=== PATIENT | female | born 1945 | race Caucasian/White ===

== ENCOUNTER 2020-07-03 17:59 | Inpatient (IN) | payer MEDICARE ==
[~2020-07-03] VITALS: Ht 157.5 cm; Wt 136.1 kg
[2020-07-03 18:00] VITALS: BP 142/61
[2020-07-03 18:30] LABS: HEMATOCRIT 37.3 % (37.0-47.0); HEMOGLOBIN 12.4 gm/dL (12.0-15.0); MCH 29.2 pg (26.0-34.0); MCHC 33.3 g/dL (28.0-37.0); MCV 87.6 fL (80.0-100.0); MPV 7.4 fl. (7.2-11.1); NUCLEATED RBCS 0 /100WBC; PLATELET COUNT* 221 thou/uL (150-400); RBC 4.26 mil/uL (4.20-5.00); RDW-CV 15.7 % (10.5-14.5)
[2020-07-03 18:40] LABS: CREATININE 1.2 mg/dL (0.6-1.3); POTASSIUM 3.9 mmol/L (3.5-5.1)
[2020-07-03 18:45] LABS: APTT 29.5 Seconds (25.0-31.3); INR 1.1; PROTIME 11.8 Seconds (9.20-11.50)
[2020-07-03 18:51] LABS: ALBUMIN 3.1 g/dL (3.4-5.0); TOTAL BILIRUBIN 1.3 mg/dL (<0.1-1.0); TOTAL PROTEIN 7.4 g/dL (6.4-8.2)
[2020-07-03 18:57] LABS: ABSOLUTE LYMPHOCYTES 0.5 thou/uL (0.8-5.3); ABSOLUTE MONOCYTES 0.8 thou/uL (0.0-1.2); ABSOLUTE NEUTROPHILS 11.7 thou/uL (1.6-8.1); PLATELET ESTIMATE ADEQUATE
[2020-07-03 18:58] LABS: ANISOCYTOSIS Occasional
[2020-07-03 19:23] LABS: URINE BILIRUBIN NEGATIVE (Negative); URINE BLOOD 2+ (Negative); URINE CLARITY CLOUDY; URINE COLOR YELLOW; URINE GLUCOSE-RANDOM NEGATIVE (Negative); URINE NITRITE-REFLEX NEGATIVE (Negative); URINE PROTEIN 1+ (Negative)
[2020-07-03 19:24] LABS: URINE KETONES 3+ (Negative); URINE LEUKOCYTES-REFLEX 3+ (Negative)
[2020-07-03 19:29] LABS: SQUAMOUS 4-10 Moderate /LPF (0-3)
[2020-07-03 19:30] LABS: MUCUS None Seen strn/LPF (None Seen); WBC CLUMPS Few (None Seen)
[2020-07-03 19:31] LABS: CRYSTALS None Seen /LPF (None Seen); URINE RBC 3-10 Few /HPF (0-2); URINE WBC-REFLEX >25 Many /HPF (0-5)
[2020-07-03 19:32] LABS: HYALINE CASTS 0-3 Few /LPF (None Seen)
[2020-07-03] MEDS ORDERED: MELOXICAM15 MG PO (20:22)
[2020-07-03] MEDS ORDERED: CELEXA 20 MG TA20 MG PO (20:23)
[2020-07-03] MEDS ORDERED: QUINAPRIL 20 MG20 MG PO (20:23)
[2020-07-03] MEDS ORDERED: OXYBUTYNIN 5 MG5 M2 PO (20:23)
[2020-07-03] MEDS ORDERED: NEURONTIN300 MG PO (20:23)
[2020-07-03] MEDS ORDERED: LORCET 5-325 M1 EACH PO (20:24)
[2020-07-03 22:45] VITALS: BP 174/64
[2020-07-04 08:20] VITALS: BP 125/71
[2020-07-04 10:09] LABS: ABSOLUTE EOSINOPHILS 0.1 thou/uL (0.0-0.7); ABSOLUTE LYMPHOCYTES 0.4 thou/uL (0.8-5.3); ABSOLUTE MONOCYTES 0.8 thou/uL (0.0-1.2); ABSOLUTE NEUTROPHILS 12.4 thou/uL (1.6-8.1); BASOPHILS 0.4 %; EOSINOPHILS 0.5 %; HEMATOCRIT 35.1 % (37.0-47.0); HEMOGLOBIN 11.5 gm/dL (12.0-15.0); LYMPHOCYTES 3.2 %; MCHC 32.8 g/dL (28.0-37.0); MCV 88.2 fL (80.0-100.0); MONOCYTES 5.7 %; MPV 7.6 fl. (7.2-11.1); NUCLEATED RBCS 0 /100WBC; PLATELET COUNT* 214 thou/uL (150-400); POLYS 90.2 %; RBC 3.98 mil/uL (4.20-5.00); RDW-CV 16.1 % (10.5-14.5); WBC 13.8 thou/uL (4.0-11.0)
[2020-07-04 10:23] LABS: ALBUMIN 2.5 g/dL (3.4-5.0); CALCIUM 8.1 mg/dL (8.5-10.1); POTASSIUM 3.8 mmol/L (3.5-5.1); TOTAL BILIRUBIN 0.7 mg/dL (<0.1-1.0); TOTAL PROTEIN 6.4 g/dL (6.4-8.2)
--- NOTE | 2020-07-04 13:16 | EKG ---
[place] [address] ELECTROCARDIOGRAM REPORT Name: MILE ROSALES Room: [address] IN .R.#: [id number] Admission: 07/03/20 Attend Phys: Eliza Panchal, Discharge: Date of : 49 Date of Service: 07/03/20 181 Report #: [id number] THIS REPORT FOR: //name// [facility] ED Test Date: 2020-07-03 Test Time: 18:13:21 Pat Name: MILE ROSALES Department: Room: [facility] Gender: F Dairy Clerk: BRANDO : 1945 Requested By: Tyrone Hoskins Order Number: [id number] MD: Alberto Maravilla Measurements Intervals [place] Rate: 95 P: 50 NC: 171 QRS: -51 QRSD: 96 T: 73 QT: 400 QTc: 503 Interpretive Statements Sinus rhythm Probable left atrial enlargement Left anterior fascicular block Possible lateral infarct, old Prolonged QT interval No previous ECG available for comparison Electronically Signed On 07-04-2020 13:16:25 CDT by Alberto Maravilla [email or web address] <ELECTRONICALLY SIGNED> By: Alberto Maravilla MD, [facility] 07/04/20 1316 1813 1813 Alberto Maravilla MD, [facility] /EPI
[2020-07-04 16:50] VITALS: BP 119/56
[2020-07-04 20:00] VITALS: BP 119/69
[2020-07-04] MEDS ORDERED: BENADRYL25 MG PO (20:50)
[2020-07-04] MEDS ORDERED: LEVOXYL25 MCG PO (20:51)
[2020-07-04] MEDS ORDERED: XANAX 0.5 MG0.5 MG PO (21:43)
[2020-07-05 01:30] VITALS: BP 121/67
[2020-07-05 04:14] LABS: ABSOLUTE BASOPHILS 0.1 thou/uL (0.0-0.2); ABSOLUTE EOSINOPHILS 0.1 thou/uL (0.0-0.7); ABSOLUTE LYMPHOCYTES 0.4 thou/uL (0.8-5.3); ABSOLUTE MONOCYTES 0.8 thou/uL (0.0-1.2); ABSOLUTE NEUTROPHILS 9.4 thou/uL (1.6-8.1); BASOPHILS 0.5 %; EOSINOPHILS 0.8 %; HEMATOCRIT 32.2 % (37.0-47.0); HEMOGLOBIN 10.8 gm/dL (12.0-15.0); LYMPHOCYTES 3.5 %; MCH 29.4 pg (26.0-34.0); MCHC 33.4 g/dL (28.0-37.0); MCV 88.1 fL (80.0-100.0); MONOCYTES 7.6 %; NUCLEATED RBCS 0 /100WBC; PLATELET COUNT* 188 thou/uL (150-400); POLYS 87.6 %; RBC 3.66 mil/uL (4.20-5.00); RDW-CV 15.8 % (10.5-14.5); WBC 10.8 thou/uL (4.0-11.0)
[2020-07-05 07:50] VITALS: BP 114/71
[2020-07-05 20:26] VITALS: BP 108/52
[2020-07-06 04:16] LABS: ABSOLUTE LYMPHOCYTES 0.6 thou/uL (0.8-5.3); ABSOLUTE NEUTROPHILS 6.4 thou/uL (1.6-8.1); HEMATOCRIT 33.1 % (37.0-47.0); MCV 87.8 fL (80.0-100.0); RBC 3.77 mil/uL (4.20-5.00)
[2020-07-06 04:18] LABS: ABSOLUTE EOSINOPHILS 0.4 thou/uL (0.0-0.7); BASOPHILS 0.5 %; EOSINOPHILS 4.4 %; LYMPHOCYTES 7.2 %; MCH 29.2 pg (26.0-34.0); MCHC 33.2 g/dL (28.0-37.0); MONOCYTES 12.3 %; MPV 7.6 fl. (7.2-11.1); NUCLEATED RBCS 0 /100WBC; PLATELET COUNT* 194 thou/uL (150-400); POLYS 75.6 %; RDW-CV 15.6 % (10.5-14.5); WBC 8.5 thou/uL (4.0-11.0)
[2020-07-06 04:28] LABS: CALCIUM 8.4 mg/dL (8.5-10.1); POTASSIUM 3.9 mmol/L (3.5-5.1)
[2020-07-06 07:55] VITALS: BP 140/72
[2020-07-06 15:00] VITALS: BP 111/67
[2020-07-06 20:00] VITALS: BP 118/66
[2020-07-07 04:53] LABS: ABSOLUTE EOSINOPHILS 0.4 thou/uL (0.0-0.7); ABSOLUTE LYMPHOCYTES 0.8 thou/uL (0.8-5.3); ABSOLUTE NEUTROPHILS 4.4 thou/uL (1.6-8.1); BASOPHILS 0.5 %; EOSINOPHILS 5.4 %; HEMATOCRIT 32.5 % (37.0-47.0); LYMPHOCYTES 12.5 %; MCH 29.3 pg (26.0-34.0); MCHC 33.7 g/dL (28.0-37.0); MCV 86.9 fL (80.0-100.0); MONOCYTES 15.5 %; MPV 7.6 fl. (7.2-11.1); NUCLEATED RBCS 0 /100WBC; PLATELET COUNT* 202 thou/uL (150-400); POLYS 66.1 %; RBC 3.74 mil/uL (4.20-5.00); RDW-CV 15.6 % (10.5-14.5); WBC 6.6 thou/uL (4.0-11.0)
[2020-07-07 05:21] LABS: ALBUMIN 2.1 g/dL (3.4-5.0); CREATININE 0.8 mg/dL (0.6-1.3); POTASSIUM 3.7 mmol/L (3.5-5.1); TOTAL BILIRUBIN 0.3 mg/dL (<0.1-1.0); TOTAL PROTEIN 6.1 g/dL (6.4-8.2)
[2020-07-07 07:45] VITALS: BP 144/77
[2020-07-07 21:00] VITALS: BP 155/95
[2020-07-08 04:00] VITALS: BP 155/95
[2020-07-08 07:50] VITALS: BP 144/76
[2020-07-08 20:30] VITALS: BP 154/83
[2020-07-09 04:38] LABS: HEMOGLOBIN 11.3 gm/dL (12.0-15.0); MCH 29.6 pg (26.0-34.0); MCHC 34.2 g/dL (28.0-37.0); MCV 86.8 fL (80.0-100.0); MPV 7.3 fl. (7.2-11.1); NUCLEATED RBCS 0 /100WBC; PLATELET COUNT* 254 thou/uL (150-400); RBC 3.81 mil/uL (4.20-5.00); RDW-CV 15.5 % (10.5-14.5); WBC 6.6 thou/uL (4.0-11.0)
[2020-07-09 04:59] LABS: CALCIUM 8.3 mg/dL (8.5-10.1); CREATININE 0.6 mg/dL (0.6-1.3); POTASSIUM 3.7 mmol/L (3.5-5.1)
[2020-07-09 06:05] LABS: ABSOLUTE EOSINOPHILS 0.2 thou/uL (0.0-0.7); ABSOLUTE LYMPHOCYTES 1.3 thou/uL (0.8-5.3); ABSOLUTE MONOCYTES 0.7 thou/uL (0.0-1.2); ABSOLUTE NEUTROPHILS 4.4 thou/uL (1.6-8.1); ANISOCYTOSIS 1+; PLATELET ESTIMATE ADEQUATE; POIKILOCYTOSIS 1+
[2020-07-09 08:00] VITALS: BP 161/84
[2020-07-09] MEDS ORDERED: PREDNISONE 10 M10 MG PO (11:16)
[2020-07-09] MEDS ORDERED: CEFUROXIME500 MG PO (11:16)
[2020-07-09 20:30] VITALS: BP 144/86
[2020-07-10 08:10] VITALS: BP 149/82
[2020-07-10 20:00] VITALS: BP 152/88
[2020-07-11 07:50] VITALS: BP 150/76
[2020-07-11 13:41] VITALS: BP 150/76
== END 2020-07-11 15:17 | DRG 871 ==
LOC: M.ERS 17:59 → M.3W 20:31 → M.TBA-ER 20:31 → M.3W 22:20
PROVIDERS: Family Medicine; Internal Medicine; ADMIT Internal Medicine; ATTEND Internal Medicine
DX: A41.51 Sepsis due to Escherichia coli [E. coli] (principal); G93.41 Metabolic encephalopathy; Z68.43 Body mass index [BMI] 50.0-59.9, adult; E66.2 Morbid (severe) obesity with alveolar hypoventilation; N30.01 Acute cystitis with hematuria; B96.20 Unspecified Escherichia coli [E. coli] as the cause of diseases classified elsewhere; M06.9 Rheumatoid arthritis, unspecified; M17.0 Bilateral primary osteoarthritis of knee; K59.00 Constipation, unspecified; E11.9 Type 2 diabetes mellitus without complications; Z20.828 Contact with and (suspected) exposure to other viral communicable diseases; Z79.899 Other long term (current) drug therapy; Z88.8 Allergy status to other drugs, medicaments and biological substances; Z87.891 Personal history of nicotine dependence

== ENCOUNTER 2020-09-28 16:57 | Inpatient (IN) | payer MEDICARE ==
[~2020-09-28] VITALS: Ht 157.5 cm; Wt 139.3 kg
[~2020-09-28 16:57] MED LIST: BENADRYL25 MG PO; CEFUROXIME500 MG PO; CELEXA 20 MG TA20 MG PO; LEVOXYL25 MCG PO; LORCET 5-325 M1 EACH PO; MELOXICAM15 MG PO; NEURONTIN300 MG PO; OXYBUTYNIN 5 MG5 M2 PO; PREDNISONE 10 M10 MG PO; QUINAPRIL 20 MG20 MG PO; XANAX 0.5 MG0.5 MG PO
[2020-09-28 17:02] VITALS: BP 119/84
[2020-09-28 17:59] LABS: HEMATOCRIT 36.8 % (37.0-47.0); MCH 29.6 pg (26.0-34.0); MCHC 32.6 g/dL (28.0-37.0); MCV 90.8 fL (80.0-100.0); MPV 7.3 fl. (7.2-11.1); NUCLEATED RBCS 0 /100WBC; PLATELET COUNT* 242 thou/uL (150-400); RBC 4.05 mil/uL (4.20-5.00); RDW-CV 15.4 % (10.5-14.5); WBC 11.8 thou/uL (4.0-11.0)
[2020-09-28 18:00] LABS: URINE BILIRUBIN NEGATIVE (Negative); URINE BLOOD NEGATIVE (Negative); URINE CLARITY CLEAR; URINE COLOR YELLOW; URINE GLUCOSE-RANDOM NEGATIVE (Negative); URINE KETONES NEGATIVE (Negative); URINE LEUKOCYTES-REFLEX TRACE (Negative); URINE NITRITE-REFLEX NEGATIVE (Negative); URINE PROTEIN NEGATIVE (Negative); URINE SPECIFIC GRAVITY 1.025 (1.005-1.030); URINE UROBILINOGEN 0.2 E.U./dl (0.2-1.0)
[2020-09-28 18:18] LABS: CREATININE 0.9 mg/dL (0.6-1.3); POTASSIUM 4.4 mmol/L (3.5-5.1); SQUAMOUS 0-3 Few /LPF (0-3); URINE WBC-REFLEX 6-15 Few /HPF (0-5); WBC CLUMPS Few (None Seen)
[2020-09-28 18:19] LABS: CRYSTALS None Seen /LPF (None Seen); HYALINE CASTS 4-10 Moderate /LPF (None Seen); MUCUS >6 Heavy strn/LPF (None Seen); URINE RBC 0-2 Rare /HPF (0-2)
[2020-09-28 18:29] LABS: ALBUMIN 2.9 g/dL (3.4-5.0); TOTAL BILIRUBIN 0.4 mg/dL (<0.1-1.0); TOTAL PROTEIN 7.1 g/dL (6.4-8.2)
[2020-09-28 19:13] LABS: ABSOLUTE EOSINOPHILS 0.1 thou/uL (0.0-0.7); ABSOLUTE LYMPHOCYTES 1.3 thou/uL (0.8-5.3); ABSOLUTE MONOCYTES 0.5 thou/uL (0.0-1.2); ABSOLUTE NEUTROPHILS 9.9 thou/uL (1.6-8.1); ATYPICAL LYMPHS 3 %; PLATELET ESTIMATE ADEQUATE
[2020-09-28 21:56] VITALS: BP 124/94
[2020-09-29] VITALS: BP 130/69; BP 88/49
[2020-09-29 04:00] VITALS: BP 113/52
[2020-09-29 08:00] VITALS: BP 108/54
[2020-09-29 16:00] VITALS: BP 120/62
[2020-09-29 20:00] VITALS: BP 118/51
[2020-09-30] VITALS: BP 126/69
[2020-09-30 04:00] VITALS: BP 135/62
[2020-09-30 08:00] VITALS: BP 141/77
[2020-09-30 12:00] VITALS: BP 130/61
[2020-09-30 16:17] VITALS: BP 157/92
[2020-09-30 20:00] VITALS: BP 154/92
[2020-10-01] VITALS: BP 141/81
[2020-10-01 04:00] VITALS: BP 147/77
[2020-10-01 08:00] VITALS: BP 146/62
--- NOTE | 2020-10-01 12:14 | EKG ---
[place] [address] ELECTROCARDIOGRAM REPORT Name: MILE ROSALES Room: [address] ADM IN M.R.#: [id number] Admission: 09/28/20 Attend Phys: Eliza Panhcal, Discharge: Date of : 49 Date of Service: 09/28/20 1840 Report #: [id number] THIS REPORT FOR: //name// [facility] ED Test Date: 2020-09-28 Test Time: 18:40:44 Pat Name: MILE ROSALES Department: Room: [facility] Gender: F Hog Killer: ALFONZO : 1945 Requested By: Isidro David Order Number: [id number] MD: Axel Vargas Measurements Intervals [place] Rate: 67 P: 32 ID: [id number] QRS: -39 QRSD: 101 T: 63 QT: 441 QTc: 466 Interpretive Statements Sinus rhythm Borderline prolonged ID interval Left axis deviation Low voltage, precordial leads Compared to ECG 07/03/2020 18:13:21 Prolonged QT interval no longer present Electronically Signed On 10-01-2020 12:14:04 PUBLIC ADDRESS SYSTEM MECHANIC by Axel Vargas [email or web address] <ELECTRONICALLY SIGNED> By: Axel Vargas MD, FACC 10/01/20 1214 1840 1840 Axel Vargas MD, FACC /EPI
[2020-10-01 16:20] VITALS: BP 150/69
[2020-10-01 20:00] VITALS: BP 143/86
[2020-10-02] VITALS: BP 149/87
[2020-10-02 04:00] VITALS: BP 144/79
[2020-10-02 09:46] VITALS: BP 144/79
[2020-10-02] MEDS ORDERED: CEFDINIR300 MG PO (11:04)
[2020-10-02] MEDS ORDERED: HYDROCODON-ACE1 EAC7 PO (11:04)
[2020-10-02] MEDS ORDERED: PREDNISONE 20 M20 MG PO (11:08)
[2020-10-02 13:31] VITALS: BP 162/82
[2020-10-02 13:34] VITALS: BP 162/82
== END 2020-10-02 14:50 | disposition home health service (06) | DRG 640 ==
LOC: M.ERS 16:57 → M.TBA-ER 19:53 → M.2W 19:53
PROVIDERS: Physician Assistant; ADMIT Internal Medicine; ATTEND Internal Medicine
DX: E86.0 Dehydration (principal); J96.01 Acute respiratory failure with hypoxia; N30.00 Acute cystitis without hematuria; Z68.43 Body mass index [BMI] 50.0-59.9, adult; M06.9 Rheumatoid arthritis, unspecified; M25.562 Pain in left knee; M25.561 Pain in right knee; R55 Syncope and collapse; E66.01 Morbid (severe) obesity due to excess calories; Z20.828 Contact with and (suspected) exposure to other viral communicable diseases; Z98.891 History of uterine scar from previous surgery; Z79.899 Other long term (current) drug therapy; Z88.8 Allergy status to other drugs, medicaments and biological substances; Z87.891 Personal history of nicotine dependence; Z72.89 Other problems related to lifestyle; Z23 Encounter for immunization

== ENCOUNTER 2021-03-02 10:15 | Inpatient (IN) | payer MEDICARE ==
[~2021-03-02] VITALS: Ht 162.6 cm; Wt 136.2 kg
[~2021-03-02 10:15] MED LIST changes: +CEFDINIR300 MG PO; +HYDROCODON-ACE1 EAC7 PO; +PREDNISONE 20 M20 MG PO
[2021-03-02 10:30] VITALS: BP 121/67
[2021-03-02 10:47] LABS: URINE BILIRUBIN NEGATIVE (Negative); URINE BLOOD TRACE (Negative); URINE CLARITY CLEAR; URINE COLOR YELLOW; URINE GLUCOSE-RANDOM NEGATIVE (Negative); URINE LEUKOCYTES-REFLEX NEGATIVE (Negative); URINE NITRITE-REFLEX NEGATIVE (Negative); URINE PROTEIN NEGATIVE (Negative); URINE UROBILINOGEN 0.2 E.U./dl (0.2-1.0)
[2021-03-02 10:49] LABS: URINE KETONES 3+ (Negative)
[2021-03-02 10:50] LABS: ACETEST (KETONE CONFIRMATORY) Large (Negative)
[2021-03-02 11:31] LABS: ABSOLUTE BASOPHILS 0.1 thou/uL (0.0-0.2); ABSOLUTE EOSINOPHILS 0.1 thou/uL (0.0-0.7); ABSOLUTE LYMPHOCYTES 0.9 thou/uL (0.8-5.3); ABSOLUTE MONOCYTES 0.4 thou/uL (0.0-1.2); ABSOLUTE NEUTROPHILS 7.4 thou/uL (1.6-8.1); BASOPHILS 1.1 %; EOSINOPHILS 1.5 %; HEMOGLOBIN 11.9 gm/dL (12.0-15.0); LYMPHOCYTES 9.5 %; MCH 28.8 pg (26.0-34.0); MCV 89.9 fL (80.0-100.0); MONOCYTES 4.7 %; MPV 6.9 fl. (7.2-11.1); NUCLEATED RBCS 0 /100WBC; PLATELET COUNT* 256 thou/uL (150-400); POLYS 83.2 %; RBC 4.12 mil/uL (4.20-5.00); RDW-CV 14.3 % (10.5-14.5); WBC 8.9 thou/uL (4.0-11.0)
[2021-03-02 11:41] LABS: CALCIUM 8.9 mg/dL (8.5-10.1); CREATININE 0.7 mg/dL (0.6-1.3); POTASSIUM 3.6 mmol/L (3.5-5.1)
[2021-03-02 11:46] LABS: ALBUMIN 2.8 g/dL (3.4-5.0); TOTAL BILIRUBIN 0.7 mg/dL (<0.1-1.0); TOTAL PROTEIN 6.5 g/dL (6.4-8.2)
[2021-03-02 14:05] VITALS: BP 133/76
[2021-03-02 14:40] VITALS: BP 122/70
[2021-03-02 16:17] LABS: BE 1.8 mmol/L (-2 to +3); PCO2 42.8 mmHg (35.0-45.0); PO2 64.6 mmHg (75.0-100.0); pH 7.412 (7.340-7.450)
[2021-03-02 16:38] VITALS: BP 119/76
--- NOTE | 2021-03-02 18:25 | NUR ---
PATIENT ARRIVED TO UNIT AT APPROX. 1410 FROM ER VIA STRETCHER. PATIENT IS A&OX4, PLEASANT AND COOPERATIVE WITH CARES. PATIENT HAS MULTIPLE BRUISES IN VARIOUS STAGES OF HEALING SPARATICALLY PRESENT ON ALL PARTS OF BODY. WHEN ASKED WHAT THEY ARE FROM, PATIENT STATES "I HAVE NO IDEA, I BARELY HIT SOMETHING AND BRUISE". PATIENT ALSO HAS A SMALL SCAB PRESENT TO 3RD TOE ON RIGHT FOOT AND BLANCHABLE REDNESS TO BILATERAL HEELS. PATIENT STATES THAT SHE HAS BEEN HOME FROM SNF FOR APPROX. 8 DAYS, AND THAT SHE WAS IN THERE FOR 9 WEEKS. PATIENT WISHES TO BE DNR (PAGED DR. LAFLEUR FOR ORDER). URINARY CATHETER PRESENT, YELLOW URINE PRESENT IN DRAINAGE BAG, HANGING TO DD. PATIENT RATES 8/10 GENERALIZED CHRONIC PAIN. PATIENT IS ON BEDREST. SPECIMEN CUP PROVIDED TO PATIENT FOR SPUTUM HOWEVER PATIENT STATES SHE HAS HAD NO COUGH. CALL LIGHT AND FREQUENTLY USED ITEMS WITHIN REACH.
[2021-03-02 20:00] VITALS: BP 125/69
--- NOTE | 2021-03-03 04:45 | NUR ---
ASSUMED PT CARE AT 1930. PT ALERT AND ORIENTED X4, POLITE AND COOPERATIVE WITH CARES. PT ON BEDREST. MULTIPLE BRUISES IN VARIOUS STAGES OF HEALING. DAVIDSON TO DD DRAINING CLEAR YELLOW URINE. PRN BENEDRYL PER PT REQUEST. ORDER OBTAINED FOR PAIN MEDICATION. HEELS ELEVATED ON PILLOW. CALL LIGHT IN REACH. HOURLY ROUNDING IN PROGRESS, WILL CONTINUE TO MONITOR.
[2021-03-03 08:41] VITALS: BP 84/43
--- NOTE | 2021-03-03 12:26 | EKG ---
[place] [address] ELECTROCARDIOGRAM REPORT Name: MILE ROSALES Room: [facility]- ADM IN M.R.#: [id number] Admission: 03/02/21 Attend Phys: Elier Martin Discharge: Date of : 49 Date of Service: 03/02/21 1030 Report #: [id number] THIS REPORT FOR: //name// [facility] ED Test Date: 2021-03-02 Test Time: 10:30:40 Pat Name: MILE ROSALES Department: Room: [facility] Gender: F Small Products I Assembler: SANDIE : 1945 Requested By: Amberly Woodson Order Number: [id number] MD: Vipul Tabor Measurements Intervals [place] Rate: 67 P: -1 AL: 145 QRS: -42 QRSD: 94 T: 87 QT: 427 QTc: 451 Interpretive Statements Sinus rhythm Left anterior fascicular block Borderline low voltage, extremity leads Baseline wander in lead(s) V2 Compared to ECG 09/28/2020 18:40:44 Left anterior fascicular block now present Left-axis deviation no longer present Electronically Signed On 03-03-2021 12:26:11 CDT by Vipul Tabor [email or web address] <ELECTRONICALLY SIGNED> By: Merlin Tabor MD, [facility] 03/03/21 1226 1030 1030 Merlin Tabor MD, [facility] /EPI
[2021-03-03 15:27] VITALS: BP 96/47
--- NOTE | 2021-03-03 18:04 | NUR ---
PATIENT HAS REMAINED A&OX4, PLEASANT AND COOPERATIVE WITH CARES THIS SHIFT. HELD A.M. DOSE OF LISINOPRIL PATIENT WAS HYPOTENSIVE (ASYMPTOMATIC) RESULT OF FENTANYL ADMINISTRATION PRIOR TO BP CHECK. MEDICATIONS AND FLUIDS ADMINISTERED ORDERED. URINARY CATHETER IN PLACE HANGING TO DD WITH YELLOW URINE COLLECTING IN DRAINAGE BAG. CALL LIGHT AND FREQUENTLY USED ITEMS WITHIN REACH.
[2021-03-03 20:00] VITALS: BP 80/37
[2021-03-04 00:41] VITALS: BP 86/50
[2021-03-04 04:05] LABS: GLYCOHEMOGLOBIN (HGB A1C) 6.1 % (4.8-5.6)
--- NOTE | 2021-03-04 06:06 | NUR ---
PATIENT RESTING IN BED. PATIENT HAS SLEPT. PATIENT HAD COMPLAINTS OF LOWER EXTREMITY PAIN, TREATED ADEQUATELY WITH MEDICATION. PATIENT HAS DAVIDSON CATHETER IN PLACE. PATIENT DENIES ANY NEEDS AT THIS TIME. CALL LIGHT WITHIN REACH.
[2021-03-04 06:09] VITALS: BP 104/68
[2021-03-04 08:10] VITALS: BP 114/49
[2021-03-04 10:34] LABS: ABSOLUTE BASOPHILS 0.1 thou/uL (0.0-0.2); ABSOLUTE EOSINOPHILS 0.2 thou/uL (0.0-0.7); ABSOLUTE LYMPHOCYTES 1.1 thou/uL (0.8-5.3); ABSOLUTE MONOCYTES 0.7 thou/uL (0.0-1.2); ABSOLUTE NEUTROPHILS 6.9 thou/uL (1.6-8.1); BASOPHILS 0.7 %; EOSINOPHILS 2.7 %; HEMATOCRIT 32.6 % (37.0-47.0); HEMOGLOBIN 10.4 gm/dL (12.0-15.0); LYMPHOCYTES 11.9 %; MCH 29.3 pg (26.0-34.0); MCV 91.5 fL (80.0-100.0); MONOCYTES 7.4 %; MPV 7.4 fl. (7.2-11.1); NUCLEATED RBCS 0 /100WBC; PLATELET COUNT* 250 thou/uL (150-400); POLYS 77.3 %; RBC 3.56 mil/uL (4.20-5.00); RDW-CV 14.7 % (10.5-14.5); WBC 8.9 thou/uL (4.0-11.0)
[2021-03-04 10:44] LABS: ALBUMIN 2.2 g/dL (3.4-5.0); CALCIUM 8.7 mg/dL (8.5-10.1); CREATININE 1.2 mg/dL (0.6-1.3); POTASSIUM 3.9 mmol/L (3.5-5.1); TOTAL BILIRUBIN 0.3 mg/dL (<0.1-1.0); TOTAL PROTEIN 5.1 g/dL (6.4-8.2)
--- NOTE | 2021-03-04 12:56 | NUR ---
Pt is A&O. Resides at home with her and dtr. Dtr assists as needed. Pt able to ambulate short distances with a walker, primarily uses her power chair. Pt also has a cane and commode. Pt recently dc from SNF. Hx of [facility]. Pt will likely need post acute rehab at or. Therapies ordered. ARU consulted. CM following, for ARU vs. SNF vs HH.
[2021-03-04 16:10] VITALS: BP 98/55
--- NOTE | 2021-03-04 18:47 | NUR ---
PT A&OX4 VSS. PT HAS DAVIDSON CATHETER, PATENT, YELLOW URINE VISBLE IN COLLECTION BAG. PT HAS BEEN HYPOTENSIVE, ASYMPTOMATIC. PROVIDERS AWARE. IV TO R HAND PATENT, DRESSING C/D/I. IV ABX AND FLUIDS DIRECTED. PT UP WITH THERAPY THIS SHIFT. PT UP ASSIST X1 W/WALKER AND GAIT BELT. PT RESTS IN BED WITH CALL LIGHT IN [facility], WILL CONTINUE TO MONITOR.
--- NOTE | 2021-03-05 04:36 | NUR ---
PATIENT SLEPT MOST OF THE NIGHT. IV FLUIDS CONTINUE TO INFUSE AT 80 ML/HR. DAVIDSON REMAINS TO DEPENDENT DRAIN. PATIENT WAS GIVEN PAIN MEDICINE ONCE FOR PAIN. WILL CONTINUE TO MONITOR.
[2021-03-05 08:05] VITALS: BP 119/82
[2021-03-05] MEDS ORDERED: CEFPODOXIME PR100 MG PO (09:51)
--- NOTE | 2021-03-05 14:19 | NUR ---
Therapies to see. ARU consulted. Plan ARU vs home with HH. Anticipate that Pt will be ready tomorrow.
--- NOTE | 2021-03-05 16:15 | NUR ---
PATIENT WORKED WITH THERAPY TODAY, PATIENT DID NOT DO WELL WITH ACTIVITY PER PT. DISCHARGE WAS TO BE HELD DEPENDING ON PT'S RECOMMENDATIONS PER DR. LAFLEUR. IVF AND SCHED ABX INFUSING ORDERED. DAVIDSON DRAINING YELLOW URINE. PATIENT STATED SHE THOUGHT IT HAD BEEN A WEEK SINCE HER LAST BM WHEN THIS NURSE ASKED PATIENT. THIS NURSE OFFERED PATIENT LAXATIVES OR TO CALL PHYSICIAN FOR SOMETHING FOR PATIENT TO HELP WITH BM, PATIENT REFUSING. PATIENT REFUSED TO TURN OR REPOSITION, EDUCATION GIVEN AND PATIENT STILL REFUSED.
[2021-03-05 16:52] VITALS: BP 105/62
[2021-03-05 20:00] VITALS: BP 101/63
--- NOTE | 2021-03-06 05:03 | NUR ---
PATIENT SLEPT MOST OF THE NIGHT. IV FLUIDS CONTINUE TO INFUSE AT 80 ML/HR. CATHETER REMAINS TO DEPENDENT DRAIN. PATIENT WAS GIVEN PAIN MEDICINE ONCE THIS SHIFT. WILL CONTINUE TO MONITOR.
--- NOTE | 2021-03-06 12:19 | NUR ---
Nutrition: Pt admitted with knee pain, debility. Seen for high BMI. Pt at usual wt of 300#. CHO controlled diet. She stated her BG at [facility] ran 100-160. She doesn't check her BG at home anymore. Denied taking DM meds. She is eating well. H/o OBE, DM, HTN, RA. helps pt cook at home. Likely disch tomorrow. Mild to low risk.
--- NOTE | 2021-03-06 13:38 | NUR ---
Pt refusing skilled, plan dc to home today. Glo from [facility] to see Pt and fax dc orders. Pt will arrange her own transport via a [employer] [facility] that she knows. Pt also stated that she plans to meet with staff from [facility] tomorrow to get assist at home with bathing and hygiene.
--- NOTE | 2021-03-06 15:29 | NUR ---
[facility] Nurse Transition Navigator: Met with patient who says dc today or tomorrow and back to . with us. Awaiting dc orders.
[2021-03-06 17:19] VITALS: BP 124/69
--- NOTE | 2021-03-06 18:50 | NUR ---
PT SLEEPING IN BED AT THIS TIME. PAIN MANAGED WITH IV PAIN MEDS. IVF INFUSING. CALL LIGHT WITHIN REACH. PT UP IN CHAIR TODAY. PT MAX ASSIST WITH WALKER AND GAIT BELT. PT VERY WEAK THIS EVENING AND GAGE LIFT BACK TO BED. DAVIDSON IN PLACE. WILL CONTINUE TO MONITOR. 1406- DR. LAFLEUR AWARE PT WEAK AND STATED TO STAY THE NIGHT, BUT WILL NEED TO D/C TOMORROW.
[2021-03-06 20:00] VITALS: BP 121/64
--- NOTE | 2021-03-07 05:57 | NUR ---
PATIENT SLEPT MOST OF THE NIGHT. PATIENT WAS GIVEN PAIN MEDICINE ONCE THIS SHIFT. PATIENT IS SUPPOSED TO DISCHARGE HOME WITH HOME HEALTH TODAY. WILL CONTINUE TO MONITOR.
[2021-03-07 07:45] VITALS: BP 124/65
[2021-03-07 11:37] VITALS: BP 124/65
[2021-03-07 11:41] VITALS: BP 124/65
--- NOTE | 2021-03-07 12:35 | NUR ---
PATIENT DISCHRGED TO HOME WITH HOME HEALTH, PATIENT REFUSED SKILLED/REHAB. PATIENT ASSISTED WITH GETTING DRESSED. PATIENT ASSISTED TO HER OWN WHEELCHAIR. DISCHARGE PAPERS REVIEWED AND SIGNED. PRESCRIPTION TRANSMITTED AND INFORMATION SHEETS GIVEN. IV REMOVED. BELONGINGS PACKED INCLUDING TABLET AND SHRIMP POND LABORER. PATIENT DENIES ANY FURTHER NEEDS. PATIENT LEFT BY WHEELCHAIR VAN AT THIS TIME.
[2021-03-07 12:55] VITALS: BP 124/65
== END 2021-03-07 12:35 | disposition home health service (06) | DRG 871 ==
LOC: M.ERS 10:15 → M.ORTHSURG 12:31 → M.TBA-ER 12:31 → M.ORTHSURG 14:05
PROVIDERS: Nurse Practitioner Family; ADMIT Internal Medicine; ATTEND Internal Medicine
DX: A41.9 Sepsis, unspecified organism (principal); G93.41 Metabolic encephalopathy; N39.0 Urinary tract infection, site not specified; Z68.43 Body mass index [BMI] 50.0-59.9, adult; E66.01 Morbid (severe) obesity due to excess calories; M19.90 Unspecified osteoarthritis, unspecified site; Z20.822 Contact with and (suspected) exposure to COVID-19; R53.81 Other malaise; E86.0 Dehydration; I10 Essential (primary) hypertension; F12.90 Cannabis use, unspecified, uncomplicated; M06.9 Rheumatoid arthritis, unspecified; Z88.8 Allergy status to other drugs, medicaments and biological substances; Z87.891 Personal history of nicotine dependence; Z82.49 Family history of ischemic heart disease and other diseases of the circulatory system; Z83.3 Family history of diabetes mellitus

== ENCOUNTER 2021-03-13 15:15 | Inpatient (IN) | payer MEDICARE ==
[~2021-03-13] VITALS: Ht 157.5 cm; Wt 141.2 kg
[~2021-03-13 15:15] MED LIST changes: +CEFPODOXIME PR100 MG PO
[2021-03-13 15:18] VITALS: BP 126/72
[2021-03-13] MEDS ORDERED: LASIX 40 MG TAB40 MG PO (15:25)
[2021-03-13 15:59] LABS: ABSOLUTE BASOPHILS 0.1 thou/uL (0.0-0.2); ABSOLUTE EOSINOPHILS 0.3 thou/uL (0.0-0.7); ABSOLUTE LYMPHOCYTES 0.9 thou/uL (0.8-5.3); ABSOLUTE MONOCYTES 0.4 thou/uL (0.0-1.2); ABSOLUTE NEUTROPHILS 7.9 thou/uL (1.6-8.1); BASOPHILS 0.7 %; EOSINOPHILS 3.2 %; HEMATOCRIT 34.2 % (37.0-47.0); HEMOGLOBIN 11.1 gm/dL (12.0-15.0); LYMPHOCYTES 9.1 %; MCH 28.6 pg (26.0-34.0); MCHC 32.4 g/dL (28.0-37.0); MCV 88.3 fL (80.0-100.0); MONOCYTES 4.7 %; MPV 6.6 fl. (7.2-11.1); NUCLEATED RBCS 0 /100WBC; PLATELET COUNT* 396 thou/uL (150-400); POLYS 82.3 %; RBC 3.87 mil/uL (4.20-5.00); WBC 9.5 thou/uL (4.0-11.0)
[2021-03-13 16:09] LABS: APTT 27.2 Seconds (25.0-31.3); INR 1.1; PROTIME 11.4 Seconds (9.20-11.50)
[2021-03-13 16:19] LABS: CALCIUM 9.1 mg/dL (8.5-10.1); CREATININE 0.6 mg/dL (0.6-1.3); POTASSIUM 3.5 mmol/L (3.5-5.1)
[2021-03-13 16:24] LABS: ALBUMIN 2.1 g/dL (3.4-5.0); TOTAL BILIRUBIN 0.4 mg/dL (<0.1-1.0); TOTAL PROTEIN 6.7 g/dL (6.4-8.2)
[2021-03-13 20:00] VITALS: BP 99/44
[2021-03-13 20:05] VITALS: BP 113/58
[2021-03-13] MEDS ORDERED: KLOR-CON 10 ER10 MEQ (20:44)
[2021-03-13 23:55] VITALS: BP 112/57
[2021-03-14 03:58] VITALS: BP 96/60
[2021-03-14 05:14] LABS: CREATININE 0.8 mg/dL (0.6-1.3); MAGNESIUM 2.1 mg/dL (1.8-2.4); POTASSIUM 3.5 mmol/L (3.5-5.1)
--- NOTE | 2021-03-14 10:57 | EKG ---
[place] [address] ELECTROCARDIOGRAM REPORT Name: MILE ROSALES Room: [address] ADM IN M.R.#: [id number] Admission: 03/13/21 Attend Phys: Agustin Irene, Discharge: Date of : 49 Date of Service: 03/13/21 1520 Report #: [id number] THIS REPORT FOR: //name// [facility] ED Test Date: 2021-03-13 Test Time: 15:20:18 Pat Name: MILE ROSALES Department: Room: [facility] Gender: F Milk Drier: : 1945 Requested By: Tyrone Hoskins Order Number: [id number] MD: Axel Vargas Measurements Intervals [place] Rate: 78 P: 45 ME: 164 QRS: -31 QRSD: 92 T: 79 QT: 415 QTc: 473 Interpretive Statements Sinus rhythm Probable left atrial enlargement Left axis deviation Borderline low voltage, extremity leads Baseline wander in lead(s) V2 Compared to ECG 03/02/2021 10:30:40 no change Electronically Signed On 03-14-2021 10:57:27 CDT by Axel Vargas [email or web address] <ELECTRONICALLY SIGNED> By: Axel Vargas MD, FACC 03/14/21 1057 1520 1520 Axel Vargas MD, FAC /EPI
--- NOTE | 2021-03-14 11:36 | 2DMMODE ---
[place] [address] 2 D/M-MODE ECHOCARDIOGRAM Name: ROSALESMILE Room: [address] IN [facility]#: [id number] Admission: 03/13/21 Attend Phys: Agustin Ierne, Discharge: Date of : 49 Date of Service: 03/14/21 1136 Report #: [id number] THIS REPORT FOR: cc: Bhupendra Thompson MD, Dean L. MD Liston, Michael J. MD [facility] ~ APPROVED REPORT Study performed: 03/14/2021 10:17:33 EXAM: Comprehensive 2D, Doppler, and color-flow Echocardiogram Patient Location: In-Patient Room #: 230 Status: routine BSA: 2.34 HR: 68 bpm BP: 96/60 mmHg Rhythm: NSR Other Information Study Quality: Fair Technically limited study due to inability to position patient, body habitus. Indications Dyspnea 2D Dimensions LVOT Diam: 20.21 (18-24mm) Volumes Left Atrial Volume (Systole) LA ESV Index: 40.30 mL/m2 Aortic Valve AoV Peak Kristian.: 2.40 m/s AO Peak Gr.: 22.95 mmHg LVOT Max P.94 mmHg AO Mean Gr.: 13.22 mmHg LVOT Mean P.63 mmHg LVOT Max V: 1.58 m/s AO V2 VTI: 46.01 cm LVOT Mean V: 1.11 m/s TAVO (VTI): 2.03 cm2 LVOT V1 VTI: 29.05 cm Mitral Valve MV Mean Gr.: 7.86 mmHg E/A Ratio: 0.78 [place] [address] 2 D/M-MODE ECHOCARDIOGRAM Name: MILE ROSALES Room: [address] IN [facility].#: [id number] Admission: 03/13/21 Attend Phys: Agustin Irene, Discharge: Date of : 49 Date of Service: 03/14/21 1136 Report #: [id number] MV Decel. Time: 731.27 ms MV E Max Kristian.: 1.45 m/s MV PHT: 212.07 ms MVA (PHT): 1.04 cm2 TDI E/Lateral E': 20.71 E/Medial E': 24.17 Medial E' Kristian.: 0.06 m/s Lateral E' Kristian.: 0.07 m/s Left Ventricle The left ventricle is normal size. There is normal LV segmental wall motion. There is normal left ventricular wall thickness. Left ventricular systolic function is normal. LVEF is 65-70%. Grade I - abnormal relaxation pattern. Right Ventricle The right ventricle is normal size. The right ventricular systolic function is normal. Atria Left atrium is moderately dilated. Right atrium is mildly dilated. Aortic Valve The Aortic valve is sclerotic. No aortic regurgitation is present. Mild aortic stenosis. Mitral Valve Moderate mitral annular calcification. There is no mitral valve regurgitation noted. Moderate mitral stenosis. Tricuspid Valve The tricuspid valve is normal in structure. There is no tricuspid valve regurgitation noted. Pulmonic Valve Pulmonic valve is not visualized. Great Vessels The aortic root is normal in size. IVC is normal in size and collapses >50% with inspiration. Pericardium There [place] [address] 2 D/M-MODE ECHOCARDIOGRAM Name: MILE ROSALES Room: [address] IN ..#: [id number] Admission: 03/13/21 Attend Phys: Agustin Irene, Discharge: Date of : 49 Date of Service: 03/14/21 1136 Report #: [id number] <Conclusion> The left ventricle is normal size. There is normal left ventricular wall thickness. Left ventricular systolic function is normal. LVEF is 65-70%. Grade I - abnormal relaxation pattern. Left atrium is moderately dilated. Right atrium is mildly dilated. The Aortic valve is sclerotic. Mild aortic stenosis. Moderate mitral annular calcification. Moderate mitral stenosis. IVC is normal in size and collapses >50% with inspiration. <ELECTRONICALLY SIGNED> By: Nathaniel Macedo MD, FACC 03/14/21 1136 1136 113 Nathaniel Macedo MD, FAC /INF
[2021-03-14 12:00] VITALS: BP 112/47
[2021-03-14 16:00] VITALS: BP 94/26
[2021-03-14 20:00] VITALS: BP 90/57
[2021-03-15] VITALS: BP 109/69
[2021-03-15 04:00] VITALS: BP 112/67
[2021-03-15 05:47] LABS: CALCIUM 9.2 mg/dL (8.5-10.1)
[2021-03-15 08:17] VITALS: BP 90/34
[2021-03-15 11:45] VITALS: BP 97/77
[2021-03-15 16:57] VITALS: BP 94/55
[2021-03-15 20:00] VITALS: BP 88/52
[2021-03-16 00:15] VITALS: BP 97/48
[2021-03-16 04:57] VITALS: BP 94/75
[2021-03-16 05:10] LABS: HEMATOCRIT 30.5 % (37.0-47.0); HEMOGLOBIN 9.5 gm/dL (12.0-15.0); MCH 27.7 pg (26.0-34.0); MCV 89.3 fL (80.0-100.0); RBC 3.42 mil/uL (4.20-5.00); RDW-CV 15.4 % (10.5-14.5)
[2021-03-16 05:32] LABS: CALCIUM 8.8 mg/dL (8.5-10.1); CREATININE 1.6 mg/dL (0.6-1.3); POTASSIUM 4.3 mmol/L (3.5-5.1)
[2021-03-16 08:20] VITALS: BP 104/49
[2021-03-16 11:41] VITALS: BP 98/48
[2021-03-16 16:09] VITALS: BP 105/61
[2021-03-16 20:00] VITALS: BP 110/61
[2021-03-17 00:40] VITALS: BP 107/47
[2021-03-17 03:05] LABS: T7 0.8 (1.2-4.9)
[2021-03-17 04:29] LABS: CALCIUM 8.7 mg/dL (8.5-10.1); CREATININE 1.1 mg/dL (0.6-1.3); POTASSIUM 4.2 mmol/L (3.5-5.1)
[2021-03-17 04:30] LABS: HEMATOCRIT 29.6 % (37.0-47.0); HEMOGLOBIN 9.4 gm/dL (12.0-15.0); MCH 28.2 pg (26.0-34.0); MCHC 31.9 g/dL (28.0-37.0); MCV 88.5 fL (80.0-100.0); MPV 6.8 fl. (7.2-11.1); RBC 3.35 mil/uL (4.20-5.00); RDW-CV 15.1 % (10.5-14.5); WBC 10.5 thou/uL (4.0-11.0)
[2021-03-17 05:11] VITALS: BP 104/60
[2021-03-17 08:00] VITALS: BP 105/52
[2021-03-17 12:00] VITALS: BP 114/58
[2021-03-17 16:00] VITALS: BP 106/53
[2021-03-17 20:00] VITALS: BP 111/51
[2021-03-18] VITALS (7 sets, daily range): BP systolic 95–117; BP diastolic 50–64
--- NOTE | 2021-03-18 09:45 | EKG ---
[place] [address] ELECTROCARDIOGRAM REPORT Name: ROSALESMILE Room: [address] ADM IN M.R.#: [id number] Admission: 03/13/21 Attend Phys: Agustin Irene, Discharge: Date of : 49 Date of Service: 03/15/211953 Report #: [id number] THIS REPORT FOR: //name// [facility] Test Date: 2021-03-15 Test Time: 19:54:48 Pat Name: MILE ROSALES Department: Room: [address] Gender: F Property Preservation Specialist: LINCOLN : 1945 Requested By: Agustin Irene Order Number: [id number] MD: Axel Vargas Measurements Intervals [place] Rate: 69 P: 16 LA: 164 QRS: -34 QRSD: 92 T: 45 QT: 410 QTc: 440 Interpretive Statements Sinus arrhythmia Left axis deviation Consider anterior infarct Compared to ECG 03/13/2021 15:20:18 no change Electronically Signed On 03-18-2021 9:44:54 CDT by Axel Vargas [email or web address] <ELECTRONICALLY SIGNED> By: Axel Vargas MD, FAC 03/18/21 0944 53 53 Axel Vargas MD, [facility] /EPI
[2021-03-19 05:23] VITALS: BP 109/51
[2021-03-19 08:00] VITALS: BP 97/39
[2021-03-19] MEDS ORDERED: SYNTHROID100 MC1 PO (11:17)
[2021-03-19 11:32] VITALS: BP 97/39
[2021-03-19 12:02] VITALS: BP 97/39
[2021-03-19 13:48] VITALS: BP 97/39
== END 2021-03-19 16:20 | disposition home health service (06) | DRG 291 ==
LOC: M.ERS 15:15 → M.2W 16:27 → M.TBA-ER 16:27 → M.2W 20:24
PROVIDERS: Family Medicine; Internal Medicine; ADMIT Internal Medicine; ATTEND Internal Medicine
DX: I50.33 Acute on chronic diastolic (congestive) heart failure (principal); R53.2 Functional quadriplegia; J96.00 Acute respiratory failure, unspecified whether with hypoxia or hypercapnia; N39.0 Urinary tract infection, site not specified; Z68.43 Body mass index [BMI] 50.0-59.9, adult; J91.8 Pleural effusion in other conditions classified elsewhere; F41.1 Generalized anxiety disorder; E11.42 Type 2 diabetes mellitus with diabetic polyneuropathy; E03.9 Hypothyroidism, unspecified; I05.0 Rheumatic mitral stenosis; K59.00 Constipation, unspecified; E66.01 Morbid (severe) obesity due to excess calories; Z20.822 Contact with and (suspected) exposure to COVID-19; Z98.891 History of uterine scar from previous surgery; Z79.899 Other long term (current) drug therapy; Z88.8 Allergy status to other drugs, medicaments and biological substances; Z87.891 Personal history of nicotine dependence; Z72.89 Other problems related to lifestyle

== ENCOUNTER 2021-11-29 14:43 | Inpatient (IN) | payer MEDICARE ==
[~2021-11-29] VITALS: Ht 157.5 cm; Wt 142.9 kg
[~2021-11-29 14:43] MED LIST changes: +KLOR-CON 10 ER10 MEQ; +LASIX 40 MG TAB40 MG PO; +SYNTHROID100 MC1 PO
[2021-11-29 14:45] VITALS: BP 129/54
--- NOTE | 2021-11-29 15:26 | EKG ---
[place] [address] ELECTROCARDIOGRAM REPORT Name: MILE ROSALES Room: [facility]#: [id number] Admission: 11/29/21 Attend Phys: Discharge: Date of : 49 Date of Service: 11/29/21 1449 Report #: [id number] THIS REPORT FOR: //name// [facility] ED Test Date: 2021-11-29 Test Time: 14:49:49 Pat Name: MILE ROSALES Department: Room: Gender: Jointer Operator: : 1945 Requested By: Trevor Ovalle Order Number: [id number] MD: Alberto Maravilla Measurements Intervals [place] Rate: 74 P: 2 WI: 138 QRS: -27 QRSD: 102 T: 65 QT: 409 QTc: 454 Interpretive Statements Sinus rhythm Borderline left axis deviation Low voltage, precordial leads Delayed R wave progression over the anterior precordium Compared to ECG 03/15/2021 19:54:48 Low QRS voltage now present Sinus arrhythmia no longer present Delayed R wave progression over the anterior precordium persists Electronically Signed On 11-29-2021 15:26:11 COST ESTIMATING ENGINEER by Alberto Maravilla [email or web address] <ELECTRONICALLY SIGNED> By: Alberto Maravilla MD, FAC 11/29/21 1526 1449 1449 Alberto Maravilla MD, [facility] /EPI
[2021-11-29 15:38] LABS: ABSOLUTE EOSINOPHILS 0.3 thou/uL (0.0-0.7); ABSOLUTE LYMPHOCYTES 0.6 thou/uL (0.8-5.3); ABSOLUTE MONOCYTES 0.6 thou/uL (0.0-1.2); ABSOLUTE NEUTROPHILS 7.7 thou/uL (1.6-8.1); BASOPHILS 0.4 %; EOSINOPHILS 2.8 %; HEMOGLOBIN 8.9 gm/dL (12.0-15.0); LYMPHOCYTES 6.9 %; MCH 25.8 pg (26.0-34.0); MCHC 30.6 g/dL (28.0-37.0); MCV 84.3 fL (80.0-100.0); MONOCYTES 6.8 %; MPV 6.7 fl. (7.2-11.1); NUCLEATED RBCS 0 /100WBC; PLATELET COUNT* 293 thou/uL (150-400); POLYS 83.1 %; RBC 3.44 mil/uL (4.20-5.00); WBC 9.3 thou/uL (4.0-11.0)
[2021-11-29 15:45] LABS: CALCIUM 8.6 mg/dL (8.5-10.1); CREATININE 0.5 mg/dL (0.6-1.3)
[2021-11-29 15:57] LABS: ALBUMIN 2.5 g/dL (3.4-5.0); TOTAL BILIRUBIN 0.2 mg/dL (<0.1-1.0); TOTAL PROTEIN 6.4 g/dL (6.4-8.2)
--- NOTE | 2021-11-29 16:30 | NUR ---
PT DIFFICULT IV STICK. THIS RN ATTEMPTED [address] AN IV, UNSUCCESSFUL. CHARGE NURSE NOTIIFIED. WILL CONTINUE TO MONITOR.
[2021-11-29 18:00] VITALS: BP 125/75
--- NOTE | 2021-11-29 18:05 | NUR ---
PT DIFFICULT IV STICK, AC IV UNABLE TO BE OBTAINED FOR CT. PROVIDER NOTIFIED. PROVIDER STATED ORDER WOULD BE CHANGED TO VQ SCAN. PT APPEARS TO BE IN NO DISTRESS, DENIES SHORTNESS OF BREATH OR CHEST PAIN AT THIS TIME. WILL CONTINUE TO MONITOR.
--- NOTE | 2021-11-29 21:50 | NUR ---
PT REPORT TO CHRIS PALMA.
[2021-11-29 22:00] VITALS: BP 100/55
[2021-11-30] VITALS (7 sets, daily range): BP systolic 109–143; BP diastolic 60–76
[2021-11-30 12:11] LABS: HEMATOCRIT 29.7 % (37.0-47.0); HEMOGLOBIN 9.2 gm/dL (12.0-15.0); MCH 25.9 pg (26.0-34.0); MCV 83.7 fL (80.0-100.0); MPV 6.8 fl. (7.2-11.1); NUCLEATED RBCS 0 /100WBC; PLATELET COUNT* 290 thou/uL (150-400); RBC 3.55 mil/uL (4.20-5.00); RDW-CV 16.9 % (10.5-14.5); WBC 9.5 thou/uL (4.0-11.0)
[2021-11-30 12:53] LABS: ABSOLUTE LYMPHOCYTES 0.3 thou/uL (0.8-5.3); ABSOLUTE MONOCYTES 0.2 thou/uL (0.0-1.2)
[2021-11-30 12:54] LABS: PLATELET ESTIMATE ADEQUATE
[2021-11-30 15:36] LABS: % SATURATION 6 % (20-39); IRON 23 ug/dL (50-175)
[2021-12-01] VITALS (7 sets, daily range): BP systolic 117–189; BP diastolic 51–77
--- NOTE | 2021-12-01 04:44 | NUR ---
PATIENT HAS REMAINED ALERT AND ORIENTED X 4. VITAL SIGNS STABLE ON 02 8L/MIN. MEDS PER ORDER. OUTPUT BY DAVIDSON CATHETER. ASSISTED WITH TURNS. LEFT PANNUS CLEANSED WITH WOUND CLEANSER AND ABD INSERTED. 2+ PEDAL EDEMA AND GENERALIZED EDEMA NOTED. FALL PRECAUTIONS IN PLACE. CONTINUE TO MONITOR.
[2021-12-01 05:08] LABS: ANION GAP < 0 mmol/L (7-16); BUN 19 mg/dL (7-18); CALCIUM 8.7 mg/dL (8.5-10.1); CHLORIDE 96 mmol/L (98-107); CO2 44 mmol/L (21-32); CREATININE 0.6 mg/dL (0.6-1.3); GLUCOSE 151 mg/dL (70-99); MAGNESIUM 2.1 mg/dL (1.8-2.4); NT-PRO BRAIN NAT PEPTIDE 1714 pg/mL (<300); POTASSIUM 3.9 mmol/L (3.5-5.1); SODIUM 139 mmol/L (136-145)
--- NOTE | 2021-12-01 09:45 | CON ---
[address] [address] CONSULTATION Name: MILE ROSALES Room: [address] IN M.R.#: [id number] Admission: 11/29/21 Attend Phys: Karissa Santillan Discharge: Date of : 49 Report #: [id number] THIS REPORT FOR: cc: Bhupendra Thompson MD, Dean L. MD Biggs, F. Douglas MD [facility] ~ DATE OF CONSULTATION: 11/30/2021 CARDIOLOGY CONSULTATION HISTORY OF PRESENT ILLNESS: I was asked by Dr. Martin to see this 75-year-old white female in Cardiology consultation for evaluation and treatment of probable acute on chronic congestive heart failure. This lady does not give a very good history. She is unaware of ever seen a heart physician. She does say that she thinks she has history of heart failure. She has only been on Lasix 40 mg daily, however. She is on no other medications. She is not followed by early years teacher. She is followed by Dr. Thompson only. She is chronically on oxygen at home. She does check her O2 sats on multiple occasions during the day. Yesterday, she noticed that her O2 sats were going down and she increased her O2 finally up to 6 liters per minute and still was having O2 sats in the 70s. O2 sat device was checked against a normal persons O2 sat and it was normal. She was seen by her home visiting nurse yesterday and she was subsequently sent to the ER. She was unaware of being short of breath, however, and she was also unaware of having marked edema. She is morbidly obese. In the emergency room, her BNP was 1274 and her chest x-ray showed vascular congestion, cardiomegaly and pulmonary edema consistent with CHF. There is also a small left pleural effusion. She was given some IV Lasix and diuresed and is much better. She says today she can breathe much better than she could yesterday. After she was breathing more easily today, she was clearly aware that she was not breathing as well yesterday. She still has 3+ ankle and pedal edema, however. She is hypothyroid. There is on replacement. PAST MEDICAL HISTORY: Essentially as described above. ALLERGIES: SHE IS ALLERGIC TO CHLORZOXAZONE OR PARAFON FORTE. REVIEW OF SYSTEMS: Essentially as per the history of present illness and is positive only for shortness of breath now, although today she is not short of breath. She is . She does not smoke, drink or use illegal drugs. She never smoked. She has never been known to have COPD according to her. HOME MEDICATIONS: Include hydrocodone/acetaminophen 5/325 one every 4 hours p.r.n. She is on prednisone 40 mg daily, cefpodoxime proxetil 100 mg b.i.d. and levothyroxine 100 mcg daily. She is also on furosemide 40 mg daily, gabapentin 300 mg t.i.d., oxybutynin 5 mg b.i.d., potassium 10 mEq daily, [place] [address] CONSULTATION Name: ROSALESMILE Room: [address] IN [facility]#: [id number] Admission: 11/29/21 Attend Phys: Karissa Santillan Discharge: Date of : 49 Report #: [id number] meloxicam 1 tablet daily, citalopram 20 mg b.i.d., Benadryl 25-50 mg p.r.n. itching or anxiety and alprazolam 0.5 mg b.i.d. p.r.n. anxiety. PAST MEDICAL HISTORY AND PAST SURGICAL HISTORY: Unremarkable for , D and C, hernia repair and morbid obesity FAMILY HISTORY: There is no significant family history. SOCIAL HISTORY: She does not use drugs. She smoked in the past, but does not smoke for many years and does not drink. REVIEW OF SYSTEMS: Unremarkable. PHYSICAL EXAMINATION: GENERAL: She presents as a well-developed, well-nourished, morbidly obese white female in no acute distress. VITAL SIGNS: Pulse was 89 and regular, respirations 18 and regular, blood pressure is 129/60, temperature is 36.9 and her O2 sat was 94% on 2 liters. HEENT: Her head was atraumatic. Eyes clear. NECK: Supple. There is no jugular venous distention or hepatojugular reflux. Thyroid is not enlarged. There is no adenopathy. SKIN: Warm and dry. Mucous membranes are moist. LUNGS: Clear to auscultation and percussion. There were decreased breath sounds diffusely however. HEART: Revealed distant first and second heart sounds. There was a 2/6 systolic ejection murmur heard in the aortic area. The aortic second sound could be clearly heard, however. ABDOMEN: Obese, soft, flat, nontender. There are no palpable masses, no organomegaly. EXTREMITIES: Revealed 3+ ankle and pedal edema. LABORATORY DATA: Her EKG showed normal sinus rhythm with a heart rate was 74. There is a leftward axis. The axis was -27. There was low voltage and there is late transition in the precordial R-wave. An old infarct cannot be completely excluded, but I think this is really clockwise rotation of the heart. IMPRESSION: 1. Congestive heart failure, acute on chronic of uncertain type that is not certain that it is systolic or diastolic or both. 2. Morbid obesity. 3. Hypothyroidism. 4. Cardiomegaly. RECOMMENDATIONS: She is to get more Lasix and she will [place] [address] CONSULTATION Name: MILE ROSALES Room: [address] IN [facility].#: [id number] Admission: 11/29/21 Attend Phys: Karissa Santillan Discharge: Date of : 49 Report #: [id number] my orders. Thank you very much for asking me to see the patient. If any questions, please feel free to contact me. <ELECTRONICALLY SIGNED> By: Merlin Tabor MD, FACC 12/01/21 0945 1104 [id number]. Vipul Tabor MD, FACC /nt
[2021-12-01 11:44] LABS: ABSOLUTE LYMPHOCYTES 0.7 thou/uL (0.8-5.3); ABSOLUTE MONOCYTES 0.9 thou/uL (0.0-1.2); ABSOLUTE NEUTROPHILS 14.9 thou/uL (1.6-8.1); BASOPHILS 0.2 %; EOSINOPHILS 0.1 %; HEMATOCRIT 28.8 % (37.0-47.0); HEMOGLOBIN 8.7 gm/dL (12.0-15.0); MCH 25.7 pg (26.0-34.0); MCHC 30.3 g/dL (28.0-37.0); MONOCYTES 5.5 %; MPV 7.3 fl. (7.2-11.1); NUCLEATED RBCS 0 /100WBC; PLATELET COUNT* 313 thou/uL (150-400); POLYS 90.2 %; RBC 3.39 mil/uL (4.20-5.00); WBC 16.6 thou/uL (4.0-11.0)
[2021-12-01 11:53] LABS: ALBUMIN 2.6 g/dL (3.4-5.0); CALCIUM 8.8 mg/dL (8.5-10.1); CREATININE 0.7 mg/dL (0.6-1.3); PHOSPHORUS* 3.5 mg/dL (2.5-4.9); POTASSIUM 3.9 mmol/L (3.5-5.1); TOTAL BILIRUBIN 0.2 mg/dL (<0.1-1.0); TOTAL PROTEIN 6.6 g/dL (6.4-8.2)
--- NOTE | 2021-12-01 12:20 | CON ---
[facility] [address] [place] [address] CONSULTATION Name: MILE ROSALES Room: [address] IN M.R.#: [id number] Admission: 11/29/21 Attend Phys: Karissa Santillan Discharge: Date of : 49 Report #: [id number] THIS REPORT FOR: cc: Bhupendra Thompson MD, Dean L. MD Biggs, F. Douglas MD [facility] ~ DATE OF CONSULTATION: 12/01/2021 CARDIOLOGY HOSPITAL FOLLOWUP NOTE SUBJECTIVE: The patient feels well today. She denies shortness of breath. She is diuresing. She says she is much better overall. OBJECTIVE: GENERAL: Today, she looks well, feels well and seems to be doing well. NECK: There is no clearcut JVD, although she has a very large neck. LUNGS: Clear with decreased breath sounds in the bases. HEART: Revealed somewhat distant first and second heart sounds. There seemed to be a soft S4. There are no murmurs or rubs. ABDOMEN: Obese, soft and nontender. EXTREMITIES: Revealed 2+ ankle and pedal edema. IMPRESSION: 1. Congestive heart failure, acute on chronic, but of indeterminate type. 2. Morbid obesity. 3. Hypothyroidism. 4. Cardiomegaly. RECOMMENDATIONS: Continue to diurese her and check an echo and then treat her according to her LV function. If she has diminished systolic function, she should be started on PIERO inhibitor or an ARB and a beta keke. Otherwise, I would just diurese her. She probably will need to have Aldactone added to her regimen regardless. <ELECTRONICALLY SIGNED> By: Merlin Tabor MD, FACC 12/01/21 1220 [id number]. Vipul Tabor MD, FACC /nt
--- NOTE | 2021-12-01 17:00 | NUR ---
O2 8L CO. JESUS BOOT TO Ana LOPEZ. STUART TO ATTILA. HERE TO VISIT. CALL LIGHT IN REACH. FALL PRECAUTIONS IN PLACE.
[2021-12-02 04:31] VITALS: BP 116/50
--- NOTE | 2021-12-02 04:33 | NUR ---
PATIENT HAS REMAINED ALERT AND ORIENTED X 4. VITAL SIGNS STABLE WITH O2 BY NASAL CANNULA AT 8L/MIN. ASSISTED WITH POSITIONING. DAVIDSON PATENT TO DEPENDENT DRAINAGE. MEDS PER ORDER INCLUDING IV LASIX. FALL PRECAUTIONS IN PLACE. CONTINUE TO MONITOR.
[2021-12-02 05:12] LABS: HEMATOCRIT 28.3 % (37.0-47.0); HEMOGLOBIN 8.4 gm/dL (12.0-15.0); MCH 25.5 pg (26.0-34.0); MCHC 29.8 g/dL (28.0-37.0); MCV 85.4 fL (80.0-100.0); MPV 6.9 fl. (7.2-11.1); RBC 3.31 mil/uL (4.20-5.00); RDW-CV 17.5 % (10.5-14.5); WBC 15.7 thou/uL (4.0-11.0)
[2021-12-02 05:24] LABS: CREATININE 0.6 mg/dL (0.6-1.3); POTASSIUM 4.2 mmol/L (3.5-5.1)
[2021-12-02 08:00] VITALS: BP 128/65
[2021-12-02 11:39] LABS: BE 22.7 mmol/L (-2 to +3); PO2 78.1 mmHg (75.0-100.0); pH 7.374 (7.340-7.450)
[2021-12-02 11:41] LABS: PCO2 90.5 mmHg (35.0-45.0)
[2021-12-02 11:59] VITALS: BP 122/65
--- NOTE | 2021-12-02 12:34 | NUR ---
Nutrition: Pt admitted with SOA. H/o OBE, CHF. Wt: 314#, usual wt 300-310#. Seen for high BMI. 2gm Na diet ordered. RD familiar with pt. Pt and follow low Na diet at home as well. Labs: alb 2.6, prealb 18.8, BG 137. Meds reviewed. Physician indicated mild PCM - defer DX. Low risk.
--- NOTE | 2021-12-02 15:47 | 2DMMODE ---
[place] [address] 2 D/M-MODE ECHOCARDIOGRAM Name: LIVIER ROSALESLIDIA Kang [facility] IN [facility]#: [id number] Admission: 11/29/21 Attend Phys: Elier Martin Discharge: Date of : 49 Date of Service: 12/02/21 1547 Report #: [id number] THIS REPORT FOR: cc: Bhupendra Thompson MD, Dean L. MD Blick,Axel Winslow MD [facility] ~ APPROVED REPORT Study performed: 12/02/2021 14:33:44 EXAM: Comprehensive 2D, Doppler, and color-flow Echocardiogram Patient Location: In-Patient Room #: 228 Status: routine BSA: 2.32 HR: 77 bpm BP: 122/65 mmHg Rhythm: NSR Other Information Study Quality: Adequate Indications Congestive Heart Failure 2D Dimensions IVSd: 14.36 (7-11mm) LVOT Diam: 20.32 (18-24mm) LVDd: 44.35 mm PWd: 12.09 (7-11mm) Ascending Ao: 34.99 (22-36mm) LVDs: 21.35 (25-40mm) Aortic Root: 30.42 mm Volumes Left Atrial Volume (Systole) LA ESV Index: 44.40 mL/m2 Aortic Valve AoV Peak Kristian.: 2.85 m/s AO Peak Gr.: 32.58 mmHg LVOT Max P.11 mmHg AO Mean Gr.: 18.34 mmHg LVOT Mean P.09 mmHg LVOT Max V: 1.42 m/s AO V2 VTI: 64.01 cm LVOT Mean V: 0.92 m/s TAVO (VTI): 1.68 cm2 LVOT V1 VTI: 33.25 [place] [address] 2 D/M-MODE ECHOCARDIOGRAM Name: MILE ROSALES Room: [address] IN .R.#: [id number] Admission: 11/29/21 Attend Phys: Elier Martin Discharge: Date of : 49 Date of Service: 12/02/21 1547 Report #: [id number] Mitral Valve MV Mean Gr.: 8.49 mmHg E/A Ratio: 1.32 MV Decel. Time: 422.07 ms MV E Max Kristian.: 2.29 m/s MV PHT: 122.40 ms MVA (PHT): 1.80 cm2 TDI E/Lateral E': 20.82 E/Medial E': 22.90 Medial E' Kristian.: 0.10 m/s Lateral E' Kristian.: 0.11 m/s Left Ventricle The left ventricle is normal size. There is normal LV segmental wall motion. Mild concentric left ventricular hypertrophy. Left ventricular systolic function is normal. The left ventricular ejection fraction is within the normal range. LVEF is 60-65%. The left ventricular diastolic function is normal. Right Ventricle The right ventricle is normal size. The right ventricular systolic function is normal. Atria Left atrium is moderately dilated. The right atrium size is normal. Aortic Valve Aortic valve is calcified. No aortic regurgitation is present. Mild aortic stenosis. Mitral Valve Moderate mitral annular calcification. Mitral valve leaflets are thickened. Trace mitral regurgitation. Mild mitral stenosis. Tricuspid Valve The tricuspid valve is normal in structure. Unable to assess PA pressure. Trace tricuspid regurgitation. Pulmonic Valve Pulmonic valve is not well visualized. There is no pulmonic valvular regurgitation. Great Vessels The aortic root is normal in size. IVC [place] [address] 2 D/M-MODE ECHOCARDIOGRAM Name: MILE ROSALES Pearl Room: [address] IN [facility]#: [id number] Admission: 11/29/21 Attend Phys: Elier Martin Discharge: Date of : 49 Date of Service: 12/02/21 1547 Report #: [id number] collapses >50% with inspiration. Pericardium There is no pericardial effusion. <Conclusion> Mild concentric left ventricular hypertrophy. LVEF is 60-65%. Left atrium is moderately dilated. Mild aortic stenosis. Mild mitral stenosis. Unable to assess PA pressure. Trace tricuspid regurgitation. <ELECTRONICALLY SIGNED> By: Axel Vargas MD, FACC 12/02/21 1547 [id number] Axel Vargas MD, FACC /INF
--- NOTE | 2021-12-02 16:39 | NUR ---
PATIENT DOWN FOR CTA THIS AFTERNOON, MIDLINE WAS PLACED FOR PROCEDURE. PATIENT WENT DOWN PRIOR FOR VQ SCAN BUT PERIPHERAL INFILTRATED. DR. CARIAS NOTIFIED AND ORDERS TO DO CTA. DR. CARIAS WAS NOTIFIED OF ABG'S THIS AFTERNOON, BIPAP ORDERED AND IN PLACE. 02 8L NC TODAY. IV ABX INFUSED ORDERED, SCHED LASIX. NO COMPLAINTS OF PAIN THIS SHIFT. ECHO THIS AFTERNOON. WOUND CARE CONS PLACED FOR PANUS ABRASION, WOUND CLEANSER USED AND ABD IN PLACE. INCONTINENT OF BM THIS AFTERNOON. DAVIDSON DRAINING LARGE AMOUNTS OF URINE.
--- NOTE | 2021-12-02 17:29 | NUR ---
Pt is admitted to the hospital on 11/29/21 for CHF. Pt is a BP pt. Pt is alert and oriented x3. Pt lives in a house with her spouse with no steps to enter. Pt has an electric wheelchair, roller walker, cane, and commode. Pt is active with [facility]. Faxed clinicals to [facility]. Pt receives private duty services weekly through [facility] for ADL's. Pt has a house father. Pt fills her prescription at [facility] [address] Pt saw her PCP last week. Pt has a hx of [facility] for oxygen. CM to continue to follow for discharge planning.
[2021-12-03 00:33] VITALS: BP 118/64
[2021-12-03 05:07] VITALS: BP 113/68
[2021-12-03 05:30] LABS: HEMATOCRIT 26.7 % (37.0-47.0); HEMOGLOBIN 8.1 gm/dL (12.0-15.0); MCH 25.5 pg (26.0-34.0); MCHC 30.4 g/dL (28.0-37.0); MCV 84.1 fL (80.0-100.0); MPV 7.1 fl. (7.2-11.1); NUCLEATED RBCS 0 /100WBC; PLATELET COUNT* 261 thou/uL (150-400); RBC 3.18 mil/uL (4.20-5.00); RDW-CV 17.7 % (10.5-14.5); WBC 18.5 thou/uL (4.0-11.0)
[2021-12-03 06:01] LABS: ALBUMIN 2.6 g/dL (3.4-5.0); CALCIUM 8.9 mg/dL (8.5-10.1); CREATININE 0.7 mg/dL (0.6-1.3); TOTAL BILIRUBIN 0.3 mg/dL (<0.1-1.0)
[2021-12-03 08:00] VITALS: BP 126/65
[2021-12-03 08:19] LABS: ABSOLUTE LYMPHOCYTES 0.7 thou/uL (0.8-5.3); ABSOLUTE MONOCYTES 0.2 thou/uL (0.0-1.2); ABSOLUTE NEUTROPHILS 17.6 thou/uL (1.6-8.1); ANISOCYTOSIS 1+; HYPOCHROMASIA 1+; PLATELET ESTIMATE ADEQUATE
[2021-12-03 08:42] LABS: pH 7.441 (7.340-7.450)
[2021-12-03 08:49] LABS: PCO2 72.5 mmHg (35.0-45.0)
[2021-12-03 08:50] LABS: PO2 45.5 mmHg (75.0-100.0)
--- NOTE | 2021-12-03 09:13 | NUR ---
ABG MAY HAVE BEEN A MIXED RESULT. PT IS A DIFFICULT STICK.
[2021-12-03 13:31] VITALS: BP 117/60
--- NOTE | 2021-12-03 13:54 | NUR ---
WOUND CARE PATINET SEEN TO ADDRESS 2 WOUNDS. SOUND #1 WAS LEFT PANUS. IT MEASURES 0.5 X 2.0 X 0.1 CM. IT IS RED GRANULATION TISSUE WITH NO DRAINAGE NOTED. WOUND #2 IS IN LEFT GROIN MEASURING 6.0 X 0.5 X 0.1 CM. IT IS RED GRANULATION TISSUE ALSO WITH NO NOTED DRAINAGE. BOTH AREAS WERE CLEANES WITH SOAP AND WATER AND PAT DRY. INTERDRY CLOTH WAS PLACED. PATINET TOLERATED WELL. EDUCATION ON WOUND CARE COMPLETED. PATIENT DENIES OTHER NEEDS AT THIS TIME.
--- NOTE | 2021-12-03 16:11 | NUR ---
Doctor is reporting the pulmologist is recommending a Trilogy. Pt is active with [facility] for oxygen so therefore will start the process of referring pt for a Trilogy. Faxed to [facility] clinical documents however need a script signed by a doctor. Will follow up with this tommorow. Pt is a BP patient and is [facility] (faxed clinicals to them yesterday) D/C Plan: Home with spouse with [facility] and [facility] through [facility].
[2021-12-03 16:27] LABS: BUN 20 mg/dL (7-18); CALCIUM 9.2 mg/dL (8.5-10.1); CHLORIDE 90 mmol/L (98-107); CREATININE 0.7 mg/dL (0.6-1.3); GLUCOSE 146 mg/dL (70-99); MAGNESIUM 2.1 mg/dL (1.8-2.4); POTASSIUM 3.7 mmol/L (3.5-5.1); SODIUM 136 mmol/L (136-145)
[2021-12-03 16:36] LABS: CO2 47 mmol/L (21-32)
[2021-12-03 17:05] VITALS: BP 134/75
[2021-12-03 20:54] VITALS: BP 123/63
[2021-12-04 00:51] VITALS: BP 117/69
[2021-12-04 04:00] VITALS: BP 124/74
[2021-12-04 05:30] LABS: ABSOLUTE BASOPHILS 0.1 thou/uL (0.0-0.2); ABSOLUTE LYMPHOCYTES 0.4 thou/uL (0.8-5.3); ABSOLUTE MONOCYTES 0.5 thou/uL (0.0-1.2); ABSOLUTE NEUTROPHILS 17.1 thou/uL (1.6-8.1); BASOPHILS 0.4 %; HEMOGLOBIN 8.6 gm/dL (12.0-15.0); LYMPHOCYTES 2.1 %; MCH 25.6 pg (26.0-34.0); MCHC 30.7 g/dL (28.0-37.0); MCV 83.5 fL (80.0-100.0); MONOCYTES 2.5 %; MPV 7.2 fl. (7.2-11.1); NUCLEATED RBCS 0 /100WBC; PLATELET COUNT* 293 thou/uL (150-400); RBC 3.35 mil/uL (4.20-5.00); RDW-CV 17.8 % (10.5-14.5)
[2021-12-04 05:44] LABS: ALBUMIN 2.6 g/dL (3.4-5.0); CALCIUM 9.6 mg/dL (8.5-10.1); CREATININE 0.6 mg/dL (0.6-1.3); MAGNESIUM 2.1 mg/dL (1.8-2.4); POTASSIUM 3.7 mmol/L (3.5-5.1); TOTAL BILIRUBIN 0.3 mg/dL (<0.1-1.0)
--- NOTE | 2021-12-04 08:04 | NUR ---
PT IS ABLE TO COMMUNICATE HER NEEDS TO STAFF EFFECTIVELY. CURRENT PAIN MEDICATION REGIMEN HAS BEEN ADEQUATE FOR CONTROLLING HER PAIN UP TO 0700 THIS MORNING. DAVIDSON HAS BEEN PATENT UP TO 0700 TODAY. PT HAS BEEN WEARING HER BIPAP WHILE ASLEEP DURING [employer].
[2021-12-04 08:23] LABS: PO2 105.3 mmHg (75.0-100.0); pH 7.368 (7.340-7.450)
[2021-12-04 08:25] VITALS: BP 140/80; BP 140/802
[2021-12-04 08:28] LABS: PCO2 80.6 mmHg (35.0-45.0)
[2021-12-04 11:52] VITALS: BP 118/66
[2021-12-04 15:34] VITALS: BP 112/74
--- NOTE | 2021-12-04 16:52 | NUR ---
Pt is a [facility] pt and is active with [facility] . Trilogy was ordered and it was delivered to pt's room today for trial. Anticipate discharge tommorow [facility]. CM to continue to follow for discharge planning.
[2021-12-04 18:13] LABS: CALCIUM 9.8 mg/dL (8.5-10.1); CREATININE 0.7 mg/dL (0.6-1.3); MAGNESIUM 2.2 mg/dL (1.8-2.4); POTASSIUM 3.7 mmol/L (3.5-5.1)
--- NOTE | 2021-12-04 20:02 | CON ---
[address] [address] CONSULTATION Name: MILE ROSALES Room: [address] IN M.R.#: [id number] Admission: 11/29/21 Attend Phys: Karissa Santillan Discharge: Date of : 49 Report #: [id number] THIS REPORT FOR: cc: Bhupendra Thompson MD, Dean L. MD Pervez, Adeel MD ~ DATE OF CONSULTATION: 12/02/2021 REQUESTING PHYSICIAN: Consult has been requested by Dr. Crow. INDICATION FOR CONSULTATION: Acute hypercarbic respiratory failure. HISTORY OF PRESENT ILLNESS: This is a 76-year-old female. She has a history of morbid obesity, body mass index is 58. The patient is on supplemental oxygen at home. She only has a remote history of smoking. She is not on a CPAP or BiPAP at home. The patient is now admitted with shortness of breath. She also is reported to have had swelling of lower extremities. She has been coughing. There is only a small amount of sputum production. At baseline, she needs 2 liters of oxygen. Currently, she is needing up to 8 liters. The patient at times has been drowsy as well. The patient was on a BiPAP, not able to provide a detailed history. REVIEW OF SYSTEMS: For 12 points is negative except as mentioned above. PAST MEDICAL HISTORY: Morbid obesity, body mass index is 58, chronic hypoxemia requiring 2 liters of oxygen continuous. While not documented in the records, it appears obvious to me that the patient has obesity hypoventilation syndrome as well as obstructive sleep apnea, which has led to chronic hypercarbic and hypoxemic respiratory failure. Two C-sections, D and C, hernia repair. Also, previous history of fluid overload as well; however, echocardiogram performed recently shows a left ventricular ejection fraction of 60-65% without documentation of right heart pressure elevation. SOCIAL HISTORY: Remote history of smoking. More than 30 or 40 years ago, she used to smoke. No known history of heavy alcohol use or illegal drug use. CURRENT MEDICATIONS: List in [employer] reviewed. HOME MEDICATIONS: List in [employer] reviewed. FAMILY HISTORY: No pertinent family history. IMMUNIZATION HISTORY: The patient is reported to have had at least 2 doses of COVID-[place] [id number] CONSULTATION Name: MILE ROSALES Room: [address]#: [id number] Admission: 11/29/21 Attend Phys: Karissa Santillan Discharge: Date of : 49 Report #: [id number] PHYSICAL EXAMINATION: GENERAL: She is drowsy. She is arousable. She is on a BiPAP of 16/8 with a 45% FiO2. Vitals in the records reviewed. NECK: Does not show raised JVP. CHEST: Breath sounds bilaterally equal. No added sounds. HEART: Regular. There is no murmur. ABDOMEN: Soft and nontender. EXTREMITIES: Lower extremities, 1+ edema bilaterally. There is mild erythema of the lower extremities as well. There is no calf tenderness. SKIN: Dry and intact. NEUROLOGIC: Nonfocal. DIAGNOSTIC DATA: Just had a CTA chest, has venous Dopplers. X-rays and labs in [facility] reviewed. ASSESSMENT AND PLAN: 1. Acute on chronic hypoxemic and hypercarbic respiratory failure. I feel that the primary etiology of her respiratory failure as well as fluid overload is morbid obesity leading to obstructive sleep apnea as well as obesity hypoventilation syndrome. I recommend that we keep her on a BiPAP whenever she is asleep or drowsy. For now, it will be okay for her to be off BiPAP while awake. In the long run, she needs a Trelegy or Astral whenever she sleeps and this needs to be set up before she is discharged. I would strongly recommend her weight loss once she is stabilized. I would recommend consideration of a weight loss surgery. 2. Fluid overload with metabolic alkalosis as well as respiratory acidosis. Arterial blood gases reviewed. Partly, she has a respiratory acidosis, which is secondary to chronic hypercarbic respiratory failure and partly she appears to have a metabolic alkalosis secondary to diuresis, which does appear to be needing. At this point, I would continue Lasix. She received IV dye this evening. Therefore, I decided not to give her this evening, but we will continue with 40 mg daily in the morning. I will give her acetazolamide 2 hours before Lasix is administered so that we can try to bring the pCO2 and bicarbonate down at the same time. While we gave her acetazolamide, we will need to watch her pH closely. I ordered a repeat arterial blood gas for tomorrow morning. We will need to watch her potassium and magnesium closely as well. 3. Bronchospasm. I feel this is a component of this as well; however, this does not appear to be the major etiology. I will give her Solu-Medrol overnight. I doubt that she will need this dose to be continued long-term. We will consider tapering tomorrow morning. We will give her nebulized bronchodilators as well. We will put her on an insulin sliding scale to avoid a rise in glucoses. 4. Pulmonary infiltrates. COVID-19 antigen was negative. She has been vaccinated for COVID previously. She is on ceftriaxone. She has some erythema of lower extremities as well. I feel [place] [id number] CONSULTATION Name: MILE ROSALES Room: [address] IN [facility].#: [id number] Admission: 11/29/21 Attend Phys: Karissa Santillan Discharge: Date of : 49 Report #: [id number] ceftriaxone. I will review further and I may consider increasing the dose considering that she also has morbid obesity. 5. Deep vein thrombosis prophylaxis. I increased the Lovenox dose to 60 bedtime, considering morbid obesity. 6. Clostridium difficile prophylaxis. We will give her Lactinex. 7. Gastrointestinal prophylaxis. If she remains on a significant dose of steroids, then we will consider giving her a proton-pump inhibitor or Pepcid as well. Thanks for this consultation. <ELECTRONICALLY SIGNED> By: Nabeel Brock MD 12/04/212001 41 [id number] Brock MD /nt
[2021-12-04 20:19] VITALS: BP 118/66
[2021-12-05] VITALS: BP 130/82
[2021-12-05 04:00] VITALS: BP 115/71
[2021-12-05 04:33] LABS: ABSOLUTE LYMPHOCYTES 0.3 thou/uL (0.8-5.3); ABSOLUTE MONOCYTES 0.5 thou/uL (0.0-1.2); ABSOLUTE NEUTROPHILS 19.6 thou/uL (1.6-8.1); BASOPHILS 0.1 %; HEMATOCRIT 28.4 % (37.0-47.0); HEMOGLOBIN 8.8 gm/dL (12.0-15.0); LYMPHOCYTES 1.6 %; MCH 25.5 pg (26.0-34.0); MCHC 30.9 g/dL (28.0-37.0); MCV 82.4 fL (80.0-100.0); MONOCYTES 2.6 %; MPV 7.4 fl. (7.2-11.1); NUCLEATED RBCS 0 /100WBC; PLATELET COUNT* 300 thou/uL (150-400); POLYS 95.7 %; RBC 3.44 mil/uL (4.20-5.00); RDW-CV 17.5 % (10.5-14.5); WBC 20.5 thou/uL (4.0-11.0)
[2021-12-05 04:47] LABS: CALCIUM 9.4 mg/dL (8.5-10.1); CREATININE 0.7 mg/dL (0.6-1.3); POTASSIUM 3.7 mmol/L (3.5-5.1)
--- NOTE | 2021-12-05 05:34 | NUR ---
PT IS ABLE TO COMMUNICATE HER NEEDS TO STAFF EFFECTIVELY. CURRENT PAIN MEDICATION REGIMEN HAS BEEN ADEQUATE FOR CONTROLLING HER PAIN UP TO THIS TIME. DAVIDSON HAS BEEN PATENT UP TO THIS TIME. SHE HAS BEEN WEARING HER BIPAP, WHILE SLEEPING, UP TO THIS TIME. POSSIBLE DISCHARGE TODAY.
[2021-12-05 08:37] VITALS: BP 1231/70
[2021-12-05 13:18] LABS: BE 16.5 mmol/L (-2 to +3); PO2 92.1 mmHg (75.0-100.0); pH 7.414 (7.340-7.450)
[2021-12-05] MEDS ORDERED: PREDNISONE 10 M10 MG PO (13:19)
[2021-12-05] MEDS ORDERED: PROTONIX40 M4 PO (13:19)
[2021-12-05] MEDS ORDERED: DOXYCYCLINE 10100 MG PO (13:19)
[2021-12-05 13:20] LABS: PCO2 70.2 mmHg (35.0-45.0)
[2021-12-05 14:15] VITALS: BP 113/63
[2021-12-05 15:53] VITALS: BP 113/63
--- NOTE | 2021-12-05 16:59 | NUR ---
PLAN FOR THE PT TO D/C HOME AND RESUME HH WITH [facility]. PT'S SPOUSE REQUEST STRETCHER TRANSPORT. STRETCHER TRANSPORTATION ARRANGED WITH [facility] NON-EMEREGENT TRANSPORT FOR 1600. PT AND SPOUSE IN AGREEMENT. RN INFORMED OF PT'S TIME OF TRANSPORT. NO OTHER CM D.C PLANNING NEEDS. CM WILL REMAIN [facility] TO ASSIST AND FOLLOW NEEDED.
--- NOTE | 2021-12-05 17:11 | NUR ---
ASSUMED PT CARE AT 0730.PT IS PLEASANTLY A&OX4. ASSESSMENT COMPLETED AND MEDICATIONS ADMINISTERED ORDERED. PT COMPLIANT WITH BIPAP. PT REPOSITIONED Q2H. DAVIDSON IS PATENT AND PT VOICES NO CONCERMS. NEW ORDER TO DISCNARGE TO HOME WITH HOME HEALTH. ORDERS REVIEWED WITH PT AND SPOUSE. ALL BELONGINGS WITH SPOUSE,HEART MONITOR REMOVED AND IV DC'D. [facility] HERE TO TRANSPORT PT TO HOME AT 1600.
== END 2021-12-05 16:00 | disposition home health service (06) | DRG 177 ==
LOC: M.ERS 14:43 → M.TBA-ER 17:56 → M.2W 17:56
PROVIDERS: Emergency Medicine Emergency Medical Services; Internal Medicine; Internal Medicine Cardiovascular Disease; Internal Medicine Critical Care Medicine; ADMIT Internal Medicine; ATTEND Internal Medicine
DX: J15.6 Pneumonia due to other Gram-negative bacteria (principal); I50.33 Acute on chronic diastolic (congestive) heart failure; J96.21 Acute and chronic respiratory failure with hypoxia; J96.22 Acute and chronic respiratory failure with hypercapnia; Z68.43 Body mass index [BMI] 50.0-59.9, adult; E44.1 Mild protein-calorie malnutrition; E66.2 Morbid (severe) obesity with alveolar hypoventilation; E87.4 Mixed disorder of acid-base balance; E03.9 Hypothyroidism, unspecified; I35.0 Nonrheumatic aortic (valve) stenosis; E87.70 Fluid overload, unspecified; J98.01 Acute bronchospasm; D64.9 Anemia, unspecified; R79.1 Abnormal coagulation profile; Z20.822 Contact with and (suspected) exposure to COVID-19; Z79.899 Other long term (current) drug therapy; Z98.891 History of uterine scar from previous surgery; Z88.8 Allergy status to other drugs, medicaments and biological substances; Z87.891 Personal history of nicotine dependence